=== PATIENT | male | born 1970 | race Caucasian/White ===

== ENCOUNTER 2016-12-12 13:38 | Emergency (ER) | payer BC ==
[~2016-12-12] VITALS: Ht 172.7 cm; Wt 72.0 kg
[2016-12-12 13:50] VITALS: TEMP 36.7; Ht 172.7 cm; Wt 72.0 kg
[2016-12-12] MEDS ORDERED: RABIES VACCINE (IMOVAX) HUMAN DIPL CELL 2.5 INTER.UNIT/ML SYR IM. ONE (14:15)
--- NOTE | 2016-12-12 14:19 | EMERGENCY ROOM VISIT NOTE ---
ED Visit Note First contact with patient: 14:00 CHIEF COMPLAINT: Rabies prophylaxis HISTORY OF PRESENT ILLNESS: This 46-year-old male patient presents to the emergency department ambulatory for their day 7 rabies shot. The patient has not had any complications from the previous injections. They deny any other complaints. The patient's injections were started at home. He states that their dogs killed a raccoon that tested positive for rabies. He has had his day 0 and 3 vaccinations and done well. He is here to pick his daughter up from school and she also needs her day 7 vaccination. REVIEW OF SYSTEMS: A 6 system review of systems was completed with positives and pertinent negatives listed in the HPI. ALLERGIES: No known drug allergies MEDICATIONS: See nursing notes PMH: Hypertension PHYSICAL EXAM: Vital Signs: Reviewed Nurse's notes, vital signs stable. GENERAL : This is a 46-year-old male, in no acute distress, well-developed, well- nourished. HEAD: Atraumatic, without temporal or scalp tenderness. EYES: PERRLA, EOMI, no discharge or injection. SKIN: Normal. NEUROLOGICAL: Alert and cooperative. Sensory and motor functions grossly intact. EMERGENCY DEPARTMENT COURSE: I examined the patient. The patient was given Imovax 1ml IM. The patient was observed for 20 minutes with no reaction. The patient was discharged home in stable condition. DIAGNOSIS: Rabies prophylaxis DISCHARGE INSTRUCTIONS: Continue vaccination schedule as directed. Return for any complications. Current/Historical Medications Scheduled Lisinopril (Lisinopril), 5 MG PO DAILY Vital Signs Date Time Temp Pulse Resp B/P Pulse Ox O2 Delivery O2 Flow Rate FiO2 12/12/16 14:37 56 16 145/102 98 12/12/16 13:50 36.7 64 16 144/96 96 Room Air Medications Administered Medications (Trade) Dose Ordered Sig/Steffi Route Start Time Stop Time Status Last Admin Dose Admin Rabies Vaccine Human Diploid Cell (Imovax Rabies) 2.5 interunit ONCE ONCE IM. 12/12/16 14:15 12/12/16 14:16 DC 12/12/16 14:18 2.5 INTERUNIT Departure Information Impression Primary Impression: Rabies, need for prophylactic vaccination against Dispostion Home / Self-Care Condition GOOD Referrals No Doctor, Assigned (PCP) Patient Instructions [facility] Additional Instructions Continue vaccination schedule as directed. Return for any complications.
[2016-12-12] MEDS ORDERED: LSN5 PO (14:35)
[2016-12-12 14:37] VITALS: BP 145/102; PULSE 56; O2SAT 98
== END 2016-12-12 14:42 | disposition home or self-care (01) ==
LOC: C.EDB 13:40 → C.EDD 14:42
DX: Z20.3 Contact with and (suspected) exposure to rabies (principal); Z23 Encounter for immunization; I10 Essential (primary) hypertension; Z79.899 Other long term (current) drug therapy